=== PATIENT | female | born 2000 | race Caucasian/White ===

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

== ENCOUNTER → 2023-12-23 | Outpatient (CLI) | payer OTHER ==
--- NOTE | 2024-01-14 08:42 | US ---
EXAMINATION TYPE: US abdomen complete DATE OF EXAM: 12/23/2023 COMPARISON: NONE CLINICAL INDICATION: Female, 23 years old with history of R10.11 RIGHT UPPER QUANDRANT PAIN; TECHNIQUE: Multiple sonographic images of the abdomen are obtained. FINDINGS: Reason: Right upper quadrant pain Tech Impression: Pancreas: WNL IV/aorta: WNL Liver: 13.9cm Gallbladder: appears wnl GB wall: 0.19cm CBD: 0.38cm Right Kidney: 10.7 x 4.2 x 4.1cm Left Kidney: 10.2 x 5.2 x 4.4cm Spleen: 11.7 x 11.3 x 5.2cm The liver is homogenous. The intrahepatic portion of the IVC and proximal abdominal aorta are within normal limits. There is no evidence of cholelithiasis. Common bile duct is unremarkable. The visu alized portions of the pancreas are homogenous. The spleen is unremarkable. Kidneys are symmetric a nd free of hydronephrosis. No renal lesions are seen. IMPRESSION: No discrete abnormality
== END | disposition home or self-care (01) ==
LOC: RADUSWWP 07:06
PROVIDERS: ATTEND Internal Medicine Gastroenterology
DX: R10.11 Right upper quadrant pain (principal); R11.2 Nausea with vomiting, unspecified; R30.0 Dysuria
CPT/HCPCS: 76700

== ENCOUNTER → 2024-12-11 | Outpatient (CLI) | payer OTHER ==
--- NOTE | 2024-12-11 11:13 | FL ---
EXAMINATION TYPE: FL UGI air w small bowel DATE OF EXAM: 12/11/2024 10:51 AM COMPARISON: Ultrasound CLINICAL INDICATION:Female, 24 years old with history of R10.9 unspecified abdominal pain; TECHNIQUE: The procedure was explained and patient history elicited. All patient questions were ans wered prior to start of procedure. A kiln setter radiograph of the abdomen was also reviewed. Multiple flu oroscopic spot images of the esophagus, stomach and duodenum were obtained following ingestion of liq uid barium and EZ-gas crystals. After the completion of the upper gastrointestinal examination, a de tailed small bowel examination was performed. The patient was asked to ingest additional liquid jori um and incremental frontal abdominal radiographs were then taken until contrast was visualized in the cecum. DAP: NOT REPORTED [id number] FINDINGS: The esophagus appears unremarkable without evidence of focal stricture, ulceration or abnormal outpou bethany. No hiatal hernia was visualized. No evidence of gastroesophageal reflux identified. The sto mach and duodenum demonstrate a normal course and contour. There is no evidence of focal gastric or duodenal ulceration, stricture, or abnormal outpouching. Small bowel mucosal folds are felt to be wit hin normal limits. Detailed small bowel examination: Contrast is seen extending from the duodenojejunal junction into the cecum after two hours, which is within the expected time period. The small bowel follows normal distribution and contour without any evidence of extraluminal or intraluminal irregularity. There is no displacement of bowel loops or e xtraluminal extravasation of contrast material. IMPRESSION: 1. Normal upper gastrointestinal examination. 2. Normal detailed small bowel examination. [facility], , 12/11/2024 11:11 AM
== END | disposition home or self-care (01) ==
LOC: RADFLMAIN 08:43
PROVIDERS: ATTEND Internal Medicine Gastroenterology
DX: R10.9 Unspecified abdominal pain (principal)
CPT/HCPCS: 74240; 74248